=== PATIENT | male | born 1970 | race Caucasian/White ===

== ENCOUNTER 2017-07-13 10:58 | Emergency (ER) | payer OTHER ==
[2017-07-13] MEDS ORDERED: ONDANSETRON 4 MG/2 ML VIAL ONE (12:11)
[2017-07-13] MEDS ORDERED: NA CHLORIDE 0.9% 1,000 ML ONE (12:11)
[2017-07-13 12:22] LABS: Absolute Lymphocytes (CBC) 2.6 K/uL (0.7-4.9); Absolute Monocytes 0.4 K/uL (0.1-1.3); Absolute Neutrophil 3.8 K/uL (1.8-8.0); Basophils % 1.1 % (0-1.3); Eosinophils % 1.6 % (0-4.4); Hematocrit 45.3 % (39.6-49.0); Lymphocytes % 37.2 % (15.3-44.8); MCV 89.3 fL (80-100); MPV 9.4 fL (7.6-11.3); Monocytes % 5.9 % (3.3-12.3); RBC Red Blood Cell Count 5.07 M/uL (4.33-5.43)
[2017-07-13] MEDS ORDERED: MORPHINE 4 MG/ML SYR ONE (12:43)
[2017-07-13 13:01] LABS: Urine Bacteria <20 /HPF (NONE SEEN); Urine Culture Reflex Order NOT NEEDED; Urine Mucus 1+ /HPF (NONE SEEN); Urine RBC <5 /HPF (NONE SEEN)
[2017-07-13 13:01] LABS: Urine Blood NEGATIVE (NEG); Urine Glucose NEGATIVE (NEG); Urine Protein 1+ (NEG); Urine Specific Gravity >1.030 (1.005-1.030)
[2017-07-13 13:19] LABS: Potassium 3.9 mEq/L (3.6-5.0)
[2017-07-13 13:25] LABS: Albumin 4.2 g/dL (3.2-5.5); Bilirubin Direct 0.1 mg/dL (0-0.2); Bilirubin Total 0.9 mg/dL (0.3-1.2); Protein, Total 7.2 g/dL (6.0-8.3)
--- NOTE | 2017-07-13 14:50 | RAD REPORT ---
EXAM DESCRIPTION: CT - Abdomen Pelvis W Contrast - 07/13/2017 2:33 pm CLINICAL HISTORY: Abdominal pain, flank pain, history of recent UTI diagnosis COMPARISON: None. TECHNIQUE: Biphasic, helical CT imaging of the abdomen and pelvis was performed following 100 ml non -ionic IV contrast. Oral contrast was given. All CT scans are performed using dose optimization technique as appropriate and may include automated exposure control or mA/KV adjustment according to patient size. FINDINGS: No suspicious findings in the lung bases. The liver, spleen, and pancreas show no suspicious findings. Gallbladder and biliary tree are also wi thout suspicious finding. Renal function is prompt and symmetric. No hydronephrosis or obstructing calculi. No perinephric stra nding seen. There is subtle area of diminished enhancement in the anterior lower pole right kidney. T his is a minimal finding. In the setting of UTI, a very minimal or early osteomyelitis is not exclude d. Correlation is needed with UA findings. No urinary bladder wall thickening, enhancement or edema. Prostate gland and seminal vesicles are normal. No bladder calculi. No dilated bowel loops or bowel wall thickening. Appendix is normal. No free air, free fluid or infla mmatory stranding. No hernia, mass or bulky lymphadenopathy. No adrenal abnormality. No suspicious bony findings. IMPRESSION: Very minimal subtle enhancement abnormality of the right kidney not clearly outside of t he range of normal. No acute prostate or urinary bladder finding. With a history of urinary tract infection, a minimal focus of pyelonephritis is not excluded. Correla tion is needed with any laboratory or UA findings.
--- NOTE | 2017-07-13 15:10 | EDPHYS ---
Physician Documentation [facility] Name: Eddie Luis Age: 47 yrs Sex: Male : 1970 Arrival Date: 07/13/2017 Time: 11:01 Bed 17 Private MD: ED Physician Arnie Naranjo HPI: 07/13 13:24 This 47 yrs old Male presents to ER via Ambulatory with complaints of Urinary jr8 Problem. 13:24 The patient presents with urinary symptoms, dysuria. Onset: The symptoms/episode jr8 began/occurred gradually, 1 week(s) ago. Modifying factors: The symptoms are alleviated by nothing, the symptoms are aggravated by urinating. Associated signs and symptoms: Pertinent positives: abdominal pain, nausea. Severity of symptoms: At their worst the symptoms were moderate, in the emergency department the symptoms are unchanged. The patient has not experienced similar symptoms in the past. The patient has been recently seen by a physician:. Patient had seen PCP about burning with urination. Stated that he was cultured and given cipro. Still having burning with urination and now having lower abdominal discomfort and nausea . Historical: - Allergies: 11:16 No Known Allergies; aj - Home Meds: 11:16 Cipro Oral [Active]; Cyclobenzaprine Oral [Active]; diclofenac oral oral [Active]; aj gabapentin oral oral [Active]; - PMHx: 11:16 Nerve pain; aj - PSHx: 11:16 None; aj - Immunization history:: Adult Immunizations up to date. - Social history:: Smoking status: Patient/guardian denies using tobacco. - Ebola Screening: : No symptoms or risks identified at this time. ROS: 13:24 Eyes: Negative for injury, pain, redness, and discharge, ENT: Negative for injury, jr8 pain, and discharge, Neck: Negative for injury, pain, and swelling, Cardiovascular: Negative for chest pain, palpitations, and edema, Respiratory: Negative for shortness of breath, cough, wheezing, and pleuritic chest pain, Back: Negative for injury and pain, MS/Extremity: Negative for injury and deformity, Skin: Negative for injury, rash, and discoloration, Neuro: Negative for headache, weakness, numbness, tingling, and seizure. 13:24 Abdomen/GI: Positive for abdominal pain, nausea, Negative for abdominal cramps, abdominal distension, anorexia, dysphagia, hematemesis, black/tarry stool, rectal pain, rectal bleeding, bowel incontinence, flatulence. 13:24 : Positive for urinary symptoms, burning with urination. Exam: 13:24 Eyes: Pupils equal round and reactive to light, extra-ocular motions intact. Lids and jr8 lashes normal. Conjunctiva and sclera are non-icteric and not injected. Cornea within normal limits. Periorbital areas with no swelling, redness, or edema. ENT: Nares patent. No nasal discharge, no septal abnormalities noted. Tympanic membranes are normal and external auditory canals are clear. Oropharynx with no redness, swelling, or masses, exudates, or evidence of obstruction, uvula midline. Mucous membranes moist. Neck: Trachea midline, no thyromegaly or masses palpated, and no cervical lymphadenopathy. Supple, full range of motion without nuchal rigidity, or vertebral point tenderness. No Meningismus. Cardiovascular: Regular rate and rhythm with a normal S1 and S2. No gallops, murmurs, or rubs. Normal PMI, no JVD. No pulse deficits. Respiratory: Lungs have equal breath sounds bilaterally, clear to auscultation and percussion. No rales, rhonchi or wheezes noted. No increased work of breathing, no retractions or nasal flaring. Abdomen/GI: Soft with normal bowel sounds. Mild lower abdominal tenderness noted. No distension or tympany. No guarding or rebound. No evidence of tenderness throughout. Back: No spinal tenderness. Full range of motion. Bilateral CVA tenderness noted upon exam Skin: Warm, dry with normal turgor. Normal color with no rashes, no lesions, and no evidence of cellulitis. MS/ Extremity: Pulses equal, no cyanosis. Neurovascular intact. Full, normal range of motion. Neuro: Awake and alert, GCS 15, oriented to person, place, time, and situation. Cranial nerves II-XII grossly intact. Motor strength 5/5 in all extremities. Sensory grossly intact. Cerebellar exam normal. Normal gait. Vital Signs: 11:16 BP 144 / 101; Pulse 79; Resp 16; Temp 97.8; Pulse Ox 98% on R/A; Weight 111.13 kg; aj Height 6 ft. 3 in. (190.50 cm); 12:00 BP 118 / 84; Pulse 68; Resp 16; Pulse Ox 99% on R/A; em 12:55 BP 118 / 75; Pulse 65; Resp 16; Pulse Ox 99% on R/A; Pain 6/10; em 13:35 BP 113 / 79; Pulse 58; Resp 16; Pulse Ox 96% on R/A; Pain 3/10; em 14:55 BP 121 / 81; Pulse 54; Resp 16; Pulse Ox 98% on R/A; Pain 8/10; em 15:43 BP 126 / 89; Pulse 54; Resp 18; Pulse Ox 99% on R/A; em 11:16 Body Mass Index 30.62 (111.13 kg, 190.50 cm) aj MDM: 11:24 Patient medically screened. 8 15:08 Data reviewed: vital signs, nurses notes, lab test result(s), radiologic studies, CT jr8 scan, and as a result, I will discharge patient. Data interpreted: Pulse oximetry: on room air is 96 %. Interpretation: normal. Counseling: I had a detailed discussion with the patient and/or guardian regarding: the historical points, exam findings, and any diagnostic results supporting the discharge/admit diagnosis, lab results, radiology results, the need for outpatient follow up, a urologist, to return to the emergency department if symptoms worsen or persist or if there are any questions or concerns that arise at home. 07/13 11:42 Order name: Basic Metabolic Panel; Complete Time: 13:27 07/13 11:42 Order name: CBC with Diff; Complete Time: 12:07/13 11:42 Order name: Creatinine for Radiology; Complete Time: 13:23 07/13 11:42 Order name: Hepatic Function; Complete Time: 13:27 07/13 11:42 Order name: Lipase; Complete Time: 13:27 07/13 11:42 Order name: Urine Microscopic Only; Complete Time: 13:12 07/13 11:42 Order name: IV Saline Lock; Complete Time: 12:07/13 11:42 Order name: Labs collected and sent; Complete Time: 12:17 07/13 11:42 Order name: Urine Dipstick-Ancillary (obtain specimen); Complete Time: 12:07/13 12:55 Order name: Urine Dipstick--Ancillary (enter results); Complete Time: 13:12 bd 07/13 13:12 Order name: CT Abd/Pelvis - W/Contrast; Complete Time: 15:07 jr8 07/13 12:28 Order name: Labs - recollect needed; Complete Time: 12:31 bd Administered Medications: 12:20 Drug: NS 0.9% 1000 ml Route: IV; Rate: 1000 ml; Site: left antecubital; em 14:05 Follow up: IV Status: Completed infusion; IV Intake: 1000ml em 12:30 Drug: Zofran 4 mg Route: IVP; Site: left antecubital; ae1 13:03 Follow up: Response: No adverse reaction em 13:00 Drug: morphine 4 mg Route: IVP; Site: left antecubital; ae1 14:04 Follow up: Response: No adverse reaction; Pain is decreased em Disposition: 07/13/17 15:09 Discharged to Home. Impression: Acute tubulo-interstitial nephritis. - Condition is Stable. - Discharge Instructions: Pyelonephritis, Adult. - Prescriptions for Zofran 4 mg Oral Tablet - take 1 tablet by ORAL route every 12 hours As needed; 20 tablet. Tramadol 50 mg Oral Tablet - take 1 tablet by ORAL route every 8 hours as needed; 12 tablet. Bactrim DS 800- 160 mg Oral Tablet - take 1 tablet by ORAL route every 12 hours for 10 days; 20 tablet. - Medication Reconciliation Form, Thank You Letter, Antibiotic Education, Prescription Opioid Use form. - Follow up: Adriana Hein MD; When: 1 week; Reason: Recheck today's complaints, Continuance of care, Re-evaluation by your physician. - Problem is new. - Symptoms have improved. Addendum: 07/15/2017 13:42 Co-signature as Attending Physician, Arnie Naranjo MD. g s Signatures: Dispatcher [employer] Ethel Castro Amanda, RN RN Camron Johnston, MARKET DEVELOPMENT SPECIALIST MARKET DEVELOPMENT SPECIALIST em Bryson Goodwin PA PA jr8 Ruiz Gaffney, RN RN ae1 Arnie Naranjo MD MD Corrections: (The following items were deleted from the chart) 07/13 15:45 15:09 07/13/2017 15:09 Discharged to Home. Impression: Acute tubulo-interstitial em nephritis. Condition is Stable. Forms are Medication Reconciliation Form, Thank You Letter, Antibiotic Education, Prescription Opioid Use. Follow up: Adriana Hein; When: 1 week; Reason: Recheck today's complaints, Continuance of care, Re-evaluation by your physician. Problem is new. Symptoms have improved. jr8
--- NOTE | 2017-07-13 15:10 | ER ---
Nurse's Notes [facility] Name: Eddie Luis Age: 47 yrs Sex: Male : 1970 Arrival Date: 07/13/2017 Time: 11:01 Bed 17 Private MD: Diagnosis: Acute tubulo-interstitial nephritis Presentation: 07/13 11:14 Presenting complaint: Patient states: Dx with UTI 2 weeks ago. Started taking cipro on aj Sunday. Transition of care: patient was not received from another setting of care. Onset of symptoms was June 26, 2017. Risk Assessment: Do you want to hurt yourself or someone else? Patient reports no desire to harm self or others. Care prior to arrival: None. 11:14 Method Of Arrival: Ambulatory 11:14 Acuity: JANET 3 aj 12:50 Initial Sepsis Screen: Does the patient meet any 2 criteria? No. Patient's initial em sepsis screen is negative. Does the patient have a suspected source of infection? No. Patient's initial sepsis screen is negative. Triage Assessment: 11:16 General: Appears in no apparent distress. comfortable, Behavior is calm, cooperative, aj appropriate for age. Pain: Complains of pain in mid back area. Neuro: Level of Consciousness is awake, alert, obeys commands, Oriented to person, place, time, situation, Appropriate for age. Respiratory: Airway is patent Respiratory effort is even, unlabored, Respiratory pattern is regular, symmetrical. : Reports burning with urination, pain in bilateral in lower back. Derm: Skin is intact, is healthy with good turgor, Skin is pink, warm \T\ dry. normal. Historical: - Allergies: 11:16 No Known Allergies; aj - Home Meds: 11:16 Cipro Oral [Active]; Cyclobenzaprine Oral [Active]; diclofenac oral oral [Active]; aj gabapentin oral oral [Active]; - PMHx: 11:16 Nerve pain; aj - PSHx: 11:16 None; aj - Immunization history:: Adult Immunizations up to date. - Social history:: Smoking status: Patient/guardian denies using tobacco. - Ebola Screening: : No symptoms or risks identified at this time. Screenin:01 Abuse screen: Denies threats or abuse. Nutritional screening: No deficits noted. em Tuberculosis screening: No symptoms or risk factors identified. Fall Risk None identified. Assessment: 12:34 General: Appears in no apparent distress. comfortable, Behavior is calm, cooperative, em Reports fever for 1-2 days, dx with UTIx 2 weeks, started abx on Sunday reports pedro. flank pain, low grade fever with nausea. Pain: Complains of pain in left low back and right low back. Neuro: Level of Consciousness is awake, alert, obeys commands, Oriented to person, place, time, situation. Cardiovascular: Capillary refill < 3 seconds Patient's skin is warm and dry. Respiratory: Airway is patent Respiratory effort is even, Respiratory pattern is regular. GI: Abdomen is flat. : Urine is cloudy, Reports burning with urination, pain scrotum. EENT: No signs and/or symptoms were reported regarding the EENT system. Derm: Skin is intact, Skin is pink, warm \T\ dry. Musculoskeletal: Range of motion: intact in all extremities. 12:34 Reassessment: I agree with assessment completed by Camron Guallpa LVN . aa5 13:30 Reassessment: Patient appears in no apparent distress at this time. Patient and/or em family updated on plan of care and expected duration. Pain level reassessed. Patient is alert, oriented x 3, equal unlabored respirations, skin warm/dry/pink. 14:30 Reassessment: Patient appears in no apparent distress at this time. Patient and/or em family updated on plan of care and expected duration. Pain level reassessed. Patient is alert, oriented x 3, equal unlabored respirations, skin warm/dry/pink. Patient states feeling better. Vital Signs: 11:16 BP 144 / 101; Pulse 79; Resp 16; Temp 97.8; Pulse Ox 98% on R/A; Weight 111.13 kg; aj Height 6 ft. 3 in. (190.50 cm); 12:00 BP 118 / 84; Pulse 68; Resp 16; Pulse Ox 99% on R/A; em 12:55 BP 118 / 75; Pulse 65; Resp 16; Pulse Ox 99% on R/A; Pain 6/10; em 13:35 BP 113 / 79; Pulse 58; Resp 16; Pulse Ox 96% on R/A; Pain 3/10; em 14:55 BP 121 / 81; Pulse 54; Resp 16; Pulse Ox 98% on R/A; Pain 8/10; em 15:43 BP 126 / 89; Pulse 54; Resp 18; Pulse Ox 99% on R/A; em 11:16 Body Mass Index 30.62 (111.13 kg, 190.50 cm) ED Course: 11:01 Patient arrived in ED. as 11:15 Triage completed. aj 11:16 Arm band placed on left wrist. Patient placed in an exam room. aj 11:24 Bryson Goodwin PA is PHCP. jr8 11:24 Arnie Naranjo MD is Attending Physician. jr8 12:15 Initial lab(s) drawn, by me, sent to lab. Missed attempt(s): 22 gauge in right mh5 antecubital area. 12:16 Basic Metabolic Panel Sent. 5 12:16 CBC with Diff Sent. 5 12:16 Creatinine for Radiology Sent. 5 12:16 Hepatic Function Sent. 5 12:17 Lipase Sent. 5 12:30 Camron Guallpa LVN is Primary Nurse. em 12:30 Patient has correct armband on for positive identification. Placed in gown. Bed in low em position. Call light in reach. 12:30 No provider procedures requiring assistance completed. Initial lab(s) drawn, by me, em sent to lab. Inserted saline lock: 22 gauge in left antecubital area, using aseptic technique. Blood collected. 14:[address] via stretcher. nj 14:33 CT completed. Patient tolerated procedure well. Patient moved back from CT. nj 14:33 CT Abd/Pelvis - W/Contrast In Process Unspecified. EDMI 15:09 Adriana Hein MD is Referral Physician. jr8 15:39 IV discontinued, intact, bleeding controlled, No redness/swelling at site. Pressure em dressing applied. Administered Medications: 12:20 Drug: NS 0.9% 1000 ml Route: IV; Rate: 1000 ml; Site: left antecubital; em 14:05 Follow up: IV Status: Completed infusion; IV Intake: 1000ml em 12:30 Drug: Zofran 4 mg Route: IVP; Site: left antecubital; ae1 13:03 Follow up: Response: No adverse reaction em 13:00 Drug: morphine 4 mg Route: IVP; Site: left antecubital; ae1 14:04 Follow up: Response: No adverse reaction; Pain is decreased em Intake: 14:05 IV: 1000ml; Total: 1000ml. em Outcome: 15:09 Discharge ordered by MD. velasco 15:43 Discharged to home ambulatory. em 15:43 Condition: good 15:43 Discharge instructions given to patient, Instructed on discharge instructions, follow up and referral plans. no drinking with medication, no driving heavy equipment, medication usage, Demonstrated understanding of instructions, follow-up care, medications, Prescriptions given X 3. 15:45 Patient left the ED. em Signatures: Dispatcher [employer] Mari Dueñas, RN RN Camron Johnston, SHAKE LOADER SHAKE LOADER Tejal Kimball Audri RN RN aa5 Bryson Goodwin PA PA jr8 Elliott, Andrea, RN RN ae1 Calvin Pearson [place] [id number]
== END 2017-07-13 15:45 | disposition home or self-care (01) ==
LOC: ER 10:58
DX: N10 Acute pyelonephritis (principal)
CPT/HCPCS: 36415; 74177; 80048; 80076; 81003; 81015; 83690; 85025; 96361; 96374; 96375; 99284; J2405; J7030; Q9967